=== PATIENT | female | born 1980 | race Hispanic/Latino ===

== ENCOUNTER 2016-10-28 20:18 | Emergency (ER) | payer BC ==
[2016-10-28 20:37] VITALS: BP 136/86; PULSE 74; RESP 16; TEMP 98.8; O2SAT 100
--- NOTE | 2016-10-28 20:48 | ED PDOC ---
Lower Extremity Pain/Injury Time Seen by Provider: 10/28/16 20:37 Chief Complaint (Nursing): Lower Extremity Problem/Injury Chief Complaint (Provider): Right foot injury History Per: Patient History/Exam Limitations: no limitations Onset/Duration Of Symptoms: Hrs (x3) Current Symptoms Are (Timing): Still Present Additional Complaint(s): Marly is a 36 y/o female who presents to the ED for evaluation of a right foot injury. States she was working out, jumped and landed wrong, twisting her right foot. She was seen at an urgent care, had an X-Ray taken, and was diagnosed with a foot fracture. There she was given an stacey wrap, crutches, and cast shoe. Patient was told she needs a specialist but states she is going on a trip to [facility] for 1 week. She denies other injury, numbness, and tingling. PMD: Yves Pizarro MD Past Medical History Reviewed: Historical Data, Nursing Documentation, Vital Signs Vital Signs: Last Vital Signs Temp 98.8 F 10/28/16 20:34 Pulse 74 10/28/16 20:34 Resp 16 10/28/16 20:34 BP 136/86 10/28/16 20:34 Pulse Ox 100 10/28/16 20:34 - Medical History PMH: No Chronic Diseases - Family History Family History: States: Unknown Family Hx - Allergies Allergies/Adverse Reactions: Allergies Allergy/AdvReac Type Severity Reaction Status Date / Time No Known Allergies Allergy Verified 10/28/16 20:33 Review of Systems ROS Statement: Except As Marked, All Systems Reviewed And Found Negative Musculoskeletal: Positive for: Foot Pain (Right) Neurological: Negative for: Numbness (and tingling) Physical Exam - Reviewed Nursing Documentation Reviewed: Yes Vital Signs Reviewed: Yes - Physical Exam Appears: Positive for: Well, Non-toxic, No Acute Distress Head Exam: Positive for: ATRAUMATIC, NORMAL INSPECTION, NORMOCEPHALIC Skin: Positive for: Warm, Dry. Negative for: Rash Eye Exam: Positive for: EOMI, Normal appearance, PERRL Neck: Positive for: Normal, Painless ROM, Supple Pulses-Dorsalis Pedis (L): 2+ Pulses-Dorsalis Pedis (R): 2+ Extremity: Positive for: Tenderness (At the dorsolateral surface of the right foot, there is ecchymosis with mild tenderness and swelling), Capillary Refill ( < 2 sec) Neurologic/Psych: Positive for: Alert, Oriented - ECG O2 Sat by Pulse Oximetry: 100 (RA) Pulse Ox Interpretation: Normal - Progress ED Course And Treament: Pt offered pain meds but refused. Foot x-ray: minimally displaced proximal 5th MTP fx Pt. evaluated by Ree, podiatry resident, who reviewed x-rays and discussed case with Dr. Barnes and requests that pt. be placed on cast and to f/u in his office in 1 week. Medical Decision Making Medical Decision Making: Time: 20:42 Initial Plan: --Pending X-Ray Right Foot --Paged Podiatry for consult Time: 21:20 --Podiatry at bedside Scribe Attestation: Documented by Glenda Oneal, acting as a scribe for Addi Jain PA-C Provider Scribe Attestation: All medical record entries made by the Scribe were at my direction and personally dictated by me. I have reviewed the chart and agree that the record accurately reflects my personal performance of the history, physical exam, medical decision making, and the department course for this patient. I have also personally directed, reviewed, and agree with the discharge instructions and disposition. Disposition - Clinical Impression Clinical Impression: Foot fracture - Patient ED Disposition Is Patient to be Admitted: No - Disposition Referrals: Obinna Barnes DPM [Medical Doctor] - Disposition: Routine/Home Disposition Time: 22:15 Condition: STABLE Additional Instructions: FOLLOW UP WITH DR. BARNES (SHOT POLISHER AND INSPECTOR) FOR FURTHER EVALUATION Instructions: Cast Care (ED), Crutch Instructions (ED), Foot Fracture in Adults (ED) Forms: [facility] [address] (Japanese), [facility] ED School/Work Excuse Print Language: SWEDISH
--- NOTE | 2016-10-28 21:39 | CP.PCM.CON ---
History of Present Illness - History of Present Illness History of Present Illness: 36 y/o female with no significant PMH seen in fast track ED by podiatry for right foot injury. Patient states she twisted her ankle and heard a cracking sound approx 4 hours ago when she was working out and doing a jumping exercise. Patient went to an urgent care facility where they told her she had a fracture but could not duplicate a set of xrays for her, so she came here instead. Patient denies any numbness, tingling or burning. Pt states she was unable to bear weight immediately after and describes the pain is moderate to severe in nature. Pt is concerned because she is traveling abroad tomorrow for one week and is worried about getting a clot. Pt denies F/C/N/V/SOB. PSH: none All: NKDA Social: social EtOH; denies cigarette use, denies illicit drug use Review of Systems - Review of Systems All systems: reviewed and no additional remarkable complaints except (per HPI) Meds Allergies/Adverse Reactions: Allergies Allergy/AdvReac Type Severity Reaction Status Date / Time No Known Allergies Allergy Verified 10/28/16 20:33 Physical Exam - Constitutional Appears: Well, Non-toxic, No Acute Distress - Extremities Exam Additional comments: Right lower extremity focused examination: Vasc: DP/PT pulses palpable 2/4. Temperature gradient warm to warm. CFT < 3 sec to all digits. Non-pitting pedal edema noted to 5th metatarsal base and dorsolateral midfoot. Derm: No ecchymosis, no erythema, no open lesions, skin and soft tissue intact Neuro: Protective sensation grossly intact. Ortho: Tenderness to palpation of dorsolateral midfoot. Pt unable to invert or jhonny at ankle due to guarding. - Neurological Exam Neurological exam: Alert, Oriented x3 - Psychiatric Exam Psychiatric exam: Normal Affect, Normal Mood Results - Vital Signs Recent Vital Signs: Last Vital Signs Temp 98.8 F 10/28/16 20:34 Pulse 74 10/28/16 20:34 Resp 16 10/28/16 20:34 BP 136/86 10/28/16 20:34 Pulse Ox 100 10/28/16 21:30 Assessment & Plan - Assessment and Plan (Free Text) Assessment: 36 y/o female with right foot Juarez fracture secondary to trauma Plan: Pt seen and evaluated in ED Discussed plan in detail with attending Dr. Barnes X-rays of R foot reveal transverse partial extra-articular minimally displaced Juarez fracture at 5th metatarsal base Applied fiberglass cast to RLE and dispensed crutches to patient Pt informed to keep cast clean dry and intact and remain non-weightbearing until follow up visit Informed patient of the nature and severity of such an injury and the healing complications due to blood supply in this area Pt informed that surgery may be needed down the line Pt to proceed with conservative treatment at this time, expresses disinterest in surgery at any time Recommended that patient take Aspirin tomorrow before flying and encouraged her to mobilize the calf as much as she can during the flight Recommended Tylenol for pain management Pt to follow up in [address] Barnes at [facility] Thank you for the consult
--- NOTE | 2016-10-29 12:37 | RAD ---
PROCEDURE: Right Foot Radiographs. HISTORY: trauma COMPARISON: None. FINDINGS: BONES: Nondisplaced fracture base of 5th metatarsal. JOINTS: Normal. SOFT TISSUES: Normal. OTHER FINDINGS: None. IMPRESSION: Nondisplaced fracture base of 5th metatarsal.
== END 2016-10-28 22:34 | disposition home or self-care (01) ==
LOC: H.ER 20:18
DX: S92.351A Displaced fracture of fifth metatarsal bone, right foot, initial encounter for closed fracture (principal); X50.0XXA Overexertion from strenuous movement or load, initial encounter; Y93.89 Activity, other specified; Y92.89 Other specified places as the place of occurrence of the external cause